=== PATIENT | female | born 1965 | race Caucasian/White ===

== ENCOUNTER 2021-12-11 16:43 | Emergency (ER) | payer OTHER, SELFPAY ==
--- NOTE | ~2021-12-11 | XR_ITS ---
EXAMINATION: XR elbow LT min 3V DATE: 12/11/2021 17:11 INDICATION: Left elbow pain after fall, initial encounter TECHNIQUE: Anteroposterior, oblique and lateral views of the left elbow were obtained. COMPARISON: None. FINDINGS: There is an acute, traumatic, closed, comminuted fracture of the olecranon. Soft tissue swe lling surrounds the fracture. No definite additional fracture is identified. There is a large joint e ffusion. IMPRESSION: 1. Comminuted fracture of the olecranon with a chronic soft tissue swelling and joint effusion. Reviewed, dictated and finalized at location A.
[2021-12-11 16:53] VITALS: BP 118/75; PULSE 83; RESP 20; TEMP 37.3; O2SAT 97
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
--- NOTE | 2021-12-11 20:19 | PC.NURSE ---
TRIED TO CALL PT AT [phone] AND NUMBER NOT IN SERVICE. SANDRA RAMOS [employer] SUPERVISOR CALLED IN ANTIBIOTIC TO [facility] IN [place]. CALLED FRIEND DONALD AT NUMBER LISTED IN EXPANSE AND TOLD HER ANTIBIOTICS AT [facility]. FRIEND DONALD REPORTS SHE IS AT [facility] AND WILL TALENT ACQUISITION ASSISTANT MEDICINE FOR PT. FLORESITA SCHROEDER RN
--- NOTE | 2021-12-11 20:25 | PC.NURSE ---
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 PT ADVISE WAITING FOR RETURN CALL FROM DR MONACO. FLORESITA SCHROEDER RN
--- NOTE | 2021-12-11 20:26 | PC.NURSE ---
1818 DR MONACO PAGED AGAIN AT DIFFERENT NUMBER. FLORESITA SCHROEDER RN.
--- NOTE | 2021-12-11 20:27 | PC.NURSE ---
1818. SANDRA RAMOS CONTACTED DR MONACO EXCHANGE IN AWAITING CALL BACK. FLORESITA SCHROEDER RN.
--- NOTE | 2021-12-11 20:28 | PC.NURSE ---
184 DR MONACO CALLED CLINIC AND SPOKE WITH SANDRA RAMOS NP. FLORESITA SCHROEDER RN
== END 2021-12-11 20:07 | disposition left against medical advice (07) ==
PROVIDERS: Emergency Provider Nurse Practitioner Family
DX: S52.022A Displaced fracture of olecranon process without intraarticular extension of left ulna, initial encounter for closed fracture (principal); V18.4XXA Pedal cycle driver injured in noncollision transport accident in traffic accident, initial encounter; L03.114 Cellulitis of left upper limb; J44.9 Chronic obstructive pulmonary disease, unspecified; Z85.41 Personal history of malignant neoplasm of cervix uteri
CPT/HCPCS: 73080; 99203; G0463

== ENCOUNTER 2021-12-13 13:18 | Emergency (ER) | payer OTHER, SELFPAY ==
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
[2021-12-13 13:28] VITALS: BP 125/92; PULSE 59; RESP 16; TEMP 37.5; O2SAT 96
== END 2021-12-13 13:35 | disposition short-term general hospital (02) ==
PROVIDERS: Emergency Provider Nurse Practitioner Family
DX: S52.022A Displaced fracture of olecranon process without intraarticular extension of left ulna, initial encounter for closed fracture (principal); V18.4XXA Pedal cycle driver injured in noncollision transport accident in traffic accident, initial encounter; J44.9 Chronic obstructive pulmonary disease, unspecified; Z86.19 Personal history of other infectious and parasitic diseases; Z85.41 Personal history of malignant neoplasm of cervix uteri
CPT/HCPCS: 99214; A4565; G0463